=== PATIENT | female | born 1995 | race Caucasian/White ===

== ENCOUNTER 2018-10-04 16:05 | Emergency (ER) | payer OTHER, MEDICAID ==
[~2018-10-04] VITALS: Ht 167.6 cm; Wt 56.7 kg
[2018-10-04 17:08] LABS: ABSOLUTE EOSINOPHILS 0.1 thou/uL (0.0-0.7); ABSOLUTE LYMPHOCYTES 2.2 thou/uL (0.8-5.3); ABSOLUTE NEUTROPHILS 4.3 thou/uL (1.6-8.1); BASOPHILS 0.5 %; EOSINOPHILS 1.8 %; HEMATOCRIT 40.1 % (37.0-47.0); HEMOGLOBIN 13.1 gm/dL (12.0-15.0); LYMPHOCYTES 28.8 %; MCH 27.5 pg (26.0-34.0); MCHC 32.7 g/dL (28.0-37.0); MONOCYTES 13.3 %; MPV 7.6 fl. (7.2-11.1); NUCLEATED RBCS 0 /100WBC; PLATELET COUNT* 315 thou/uL (150-400); POLYS 55.6 %; RBC 4.77 mil/uL (4.20-5.00); RDW-CV 16.3 % (10.5-14.5); WBC 7.7 thou/uL (4.0-11.0)
[2018-10-04 17:13] LABS: CALCIUM 8.9 mg/dL (8.5-10.1); CREATININE 0.6 mg/dL (0.6-1.3); POTASSIUM 3.6 mmol/L (3.5-5.1)
[2018-10-04 17:17] LABS: ALBUMIN 3.7 g/dL (3.4-5.0); TOTAL BILIRUBIN 0.3 mg/dL (<0.1-1.0); TOTAL PROTEIN 7.9 g/dL (6.4-8.2)
[2018-10-04 18:11] LABS: ESR (SEDRATE) 20 mm/hr (0-20)
[2018-10-04 18:21] VITALS: BP 131/79
== END 2018-10-04 18:22 | disposition home or self-care (01) ==
LOC: M.ERS 16:05
PROVIDERS: Physician Assistant
DX: M25.462 Effusion, left knee (principal); M25.562 Pain in left knee; F17.210 Nicotine dependence, cigarettes, uncomplicated; Z98.890 Other specified postprocedural states

== ENCOUNTER 2018-10-14 17:14 | Emergency (ER) | payer OTHER, MEDICAID ==
[~2018-10-14] VITALS: Ht 167.6 cm; Wt 56.7 kg
[2018-10-14 17:58] LABS: URINE BILIRUBIN NEGATIVE (Negative); URINE BLOOD NEGATIVE (Negative); URINE CLARITY CLEAR; URINE COLOR YELLOW; URINE GLUCOSE-RANDOM NEGATIVE (Negative); URINE KETONES TRACE (Negative); URINE LEUKOCYTES-REFLEX NEGATIVE (Negative); URINE NITRITE-REFLEX NEGATIVE (Negative); URINE PROTEIN NEGATIVE (Negative); URINE SPECIFIC GRAVITY >= 1.030 (1.005-1.030)
[2018-10-14 20:26] LABS: BF RBC 95844 /mm3; TOTAL CELL COUNT 24245 /mm3
[2018-10-14 20:28] LABS: BF POLYS 96 %; CLARITY CLOUDY; COLOR RED; SOURCE KNEE; TOTAL VOLUME 15 ml
[2018-10-14 20:29] LABS: BF LYMPHOCYTES 4 %
[2018-10-14 20:31] VITALS: BP 115/71
== END 2018-10-14 20:33 | disposition home or self-care (01) ==
LOC: M.ERS 17:14
PROVIDERS: Nurse Practitioner Family
DX: N73.9 Female pelvic inflammatory disease, unspecified (principal); M70.52 Other bursitis of knee, left knee; F17.200 Nicotine dependence, unspecified, uncomplicated; Z98.890 Other specified postprocedural states; Y93.89 Activity, other specified